=== PATIENT | female | born 1965 | race Caucasian/White ===

== ENCOUNTER → 2021-03-05 03:02 | Outpatient (CLI) | payer BC, SELFPAY ==
[2021-03-05 18:14] LABS: SARS-CoV-2 RNA PCR Negative
== END ==
PROVIDERS: PCP Physician Assistant; Visit Provider Internal Medicine Gastroenterology
DX: Z01.812 Encounter for preprocedural laboratory examination (principal); Z20.822 Contact with and (suspected) exposure to COVID-19
CPT/HCPCS: C9803; U0003; U0005

== ENCOUNTER → 2021-04-05 13:37 | Outpatient (CLI) | payer BC, SELFPAY ==
--- NOTE | ~2021-04-05 | MM_ITS ---
EXAMINATION: MM screening derek BI w charu HISTORY: Screening TECHNIQUE: Craniocaudal and mediolateral oblique 3-D tomosynthesis images were obtained and synthetic 2-D images were generated. CAD analysis was submitted and interpreted. COMPARISON: Comparison to multiple prior studies sequentially, with oldest reviewed study dated 06/28. BREAST PARENCHYMAL COMPOSITION: There are scattered areas of fibroglandular density. FINDINGS: There is no evidence of suspicious mass, calcification, or architectural distortion to sugg est malignancy in either breast. There has been no suspicious interval change. IMPRESSION: 1. No mammographic evidence of malignancy. 2. Recommend routine screening mammography in one year. BI-RADS Category 1: Negative Reviewed, dictated and finalized at location A.
== END ==
PROVIDERS: PCP Physician Assistant; Visit Provider Nurse Practitioner
DX: Z12.31 Encounter for screening mammogram for malignant neoplasm of breast (principal)
CPT/HCPCS: 77063; 77067

== ENCOUNTER → 2022-05-20 11:29 | Outpatient (CLI) | payer BC, SELFPAY ==
--- NOTE | ~2022-05-20 | MM_ITS ---
EXAMINATION: MM screening derek BI w charu HISTORY: Screening mammogram TECHNIQUE: Craniocaudal and mediolateral oblique 3-D tomosynthesis images were obtained and synthetic 2-D images were generated. CAD analysis was submitted and interpreted. COMPARISON: 04/05/2021, 05/2016 bilateral screening mammogram examinations BREAST PARENCHYMAL COMPOSITION: There are scattered areas of fibroglandular density. FINDINGS: There is no evidence of suspicious mass, calcification, or architectural distortion to sugg est malignancy in either breast. There has been no suspicious interval change. IMPRESSION: 1. No mammographic evidence of malignancy. 2. Recommend routine screening mammography in one year. BI-RADS Category 1: Negative Reviewed, dictated and finalized at location A.
== END ==
PROVIDERS: PCP Physician Assistant; Visit Provider Nurse Practitioner
DX: Z12.31 Encounter for screening mammogram for malignant neoplasm of breast (principal)
CPT/HCPCS: 77063; 77067

== ENCOUNTER 2022-08-06 14:41 | Emergency (ER) | payer BC, SELFPAY ==
--- NOTE | ~2022-08-06 | CT_ITS ---
EXAMINATION: CT abdomen pelvis w con DATE: 08/06/2022 18:31 INDICATION: LLQ abd pain TECHNIQUE: Computed tomography (CT) of the abdomen and pelvis was performed with 100 mL Omnipaque-350 intravenous contrast. Automated exposure control and iterative reconstruction technique were employe d. The dose-length product was 376.41 mGy-cm. COMPARISON: None. FINDINGS: Lower thorax: Bibasilar atelectasis Liver: Simple right lobe cyst Biliary/Gallbladder: Gallbladder is normal. No bile duct dilation. Pancreas: No mass or duct dilation. Spleen: Normal. Adrenals:No mass. Kidneys: No mass, stone, or hydronephrosis. GI tract: Mild distal esophageal and gastric wall edema as can be seen with esophagitis/gastritis. No small or large bowel dilation. Mild wall edema in the sigmoid colon. Appendix not visualized Mesentery/Peritoneum: No ascites, mass, or free air. Mild mesenteric fat stranding in the small bowel mesentery in the left abdomen. Retroperitoneum: No mass. Pelvis: Partially distended urinary bladder. Uterine fibroids.. Soft Tissues: Soft tissues and body wall unremarkable. Bones: No acute osseous finding. IMPRESSION: Mild sigmoid wall edema, with mild nonspecific fat stranding in the left abdominal small bowel mesent marion, may reflect a component of enteritis and colitis. Otherwise no acute process detected in the abd omen or pelvis. Reviewed, dictated and finalized at location K. IMPRESSION: Mild sigmoid wall edema, with mild nonspecific fat stranding in the left abdomi nal small bowel mesentery, may reflect a component of enteritis and colitis. Ot herwise no acute process detected in the abdomen or pelvis.
[2022-08-06 15:12] LABS: Basophils Percent Auto 0.5 % (0.2-1.2); Eosinophils Absolute Auto 0.1 K/mm3 (0-0.3); Eosinophils Percent Auto 1.2 % (0-4.4); Hematocrit 40.4 % (37.0-47.0); Hemoglobin 13.4 g/dL (12.0-15.0); Immature Granulocyte Absolute 0.01 K/mm3 (0.00-0.031); Immature Granulocyte Percent A 0.2 % (0-0.5); Lymphocytes Absolute Auto 1.51 K/mm3 (0.9-3.2); Lymphocytes Percent Auto 24.8 % (18.3-44.2); Mean Corpuscular HGB Conc 33.2 g/dl (32-36); Mean Corpuscular Hemoglobin 29.8 pg (26-34); Mean Platelet Volume 9.6 fl (7.4-10.4); Monocytes Absolute Auto 0.5 K/mm3 (0.1-0.6); Monocytes Percent Auto 8.4 % (2.6-8.5); Neutrophils Percent Auto 64.9 % (45.5-73.1); Platelet Count Result 279 k/mm3 (150-375); Red Blood Count 4.49 M/mm3 (4.2-5.4); Red Cell Distribution Width 13.2 % (11.5-14.5); White Blood Count 6.1 K/mm3 (4.5-10.0)
[2022-08-06 15:15] VITALS: BP 152/83; PULSE 107; RESP 18; TEMP 36.2; O2SAT 100
[2022-08-06 15:16] LABS: Appearance Urine Clear (Clear); Bilirubin Urine Negative (Negative); Blood Urine Negative (Negative); Color Urine Yellow (Yellow); Glucose Urine UA Negative (Negative); Ketones Urine Trace mg/dL (Negative); Leukocyte Esterase Ur Negative LEU/UL (Negative); Nitrate Urine Negative (Negative); Protein Urine Negative (Negative); Urobilinogen Urine 0.2 mg/dL (<2.0)
[2022-08-06 15:19] LABS: Mucus Urine Rare /lpf; RBC Urine 0-2 /hpf (0-2); WBC Urine 0-3 /hpf
[2022-08-06 15:20] LABS: Add Urine Microscopic? YES
[2022-08-06 15:20] LABS: Alanine Aminotransferase 27 U/L (6-35); Albumin Level 4.8 g/dL (3.5-5.1); Alkaline Phosphatase 77 U/L (38-126); Anion Gap 10 mmol/L (8-16); Aspartate Amino Transferase 30 U/L (14-36); Bilirubin,Total 0.4 mg/dL (0.2-1.3); Blood Urea Nitrogen 10 mg/dL (7-17); Calcium 9.3 mg/dL (8.4-10.2); Carbon Dioxide 28 mmol/L (22-30); Chloride 96 mmol/L (98-107); Estimated CRCL calculation 72 ml/min; Estimated Glomerular Filt Rate > 60; Glucose 229 mg/dL (65-110); Lipase 107 U/L (23-300); Potassium 4.3 mmol/L (3.4-5.0); Sodium 134 mmol/L (137-145)
--- NOTE | 2022-08-06 17:20 | ED.ABDPAIN ---
HPI - Abdominal Pain General Chief Complaint: Abdominal Pain Stated Complaint: abdominal pressure Time Seen by Provider: 08/06/22 17:16 Source: patient Mode of arrival: ambulatory Limitations: no limitations History of Present Illness HPI narrative: Patient is a 56-year-old female presenting to the emergency department for evaluation of left lower quadrant abdominal pain. Patient reports she has had intermittent cramping pain over the past several weeks. Patient has seen her primary care physician who ordered outpatient testing for her, and referred her to a manager women. Patient is supposed to see Dr. Valenzuela next week. Patient presents with acute on chronic colicky left upper and lower quadrant abdominal pain and intermittent fullness. Patient states that she has adhered mostly to a liquid diet with some improvement in her symptoms. Patient reports chronic constipation but reports improvement with liquid diet. She denies diarrhea. She denies dark or tarry stool. No mucus present in the stool. She denies unintentional weight loss. Today, patient reports that she had some generalized fatigue and nonfocal weakness as well as left-sided pain which prompted her visit to the ER. Related Data Allergies Allergy/AdvReac Type Severity Reaction Status Date / Time Penicillins Allergy Hives Verified 08/06/22 15:15 Review of Systems Review of Systems: CONSTITUTIONAL: Denies fever, chills, or sweats. EYES: Denies visual changes, redness, or discharge. ENT: Denies rhinorrhea, congestion, sore throat, or otalgia. CARDIOVASCULAR: Denies chest pain, palpitations, or edema. RESPIRATORY: Denies cough or dyspnea. GASTROINTESTINAL: Reports left-sided abdominal pain, denies nausea, vomiting, reports constipation GENITOURINARY: Denies dysuria or hematuria. SKIN: Denies rash or itching. MUSCULOSKELETAL: Denies back pain, joint pain, or myalgia. NEUROLOGIC: Denies headache, numbness, reports generalized weakness PMFSH Social History Social History (Updated 08/06/22 @ 17:38 by Yoon Kong MD) Smoking status: Never smoker Alcohol intake: never Substance use: never Living arrangements: with family Gender identity (if verbalized by the patient): Female Spiritual care concerns: No Exam Narrative: GENERAL: Awake, alert, conversant HEAD: Normocephalic, atraumatic. EYES: PERRLA and EOMI. ENT: Nares clear, no rhinorrhea or epistaxis. Mucous membranes moist. NECK: Supple. CHEST: No respiratory distress, breathing even and non labored HEART: Tachycardic rate, sinus rhythm ABDOMEN:Non distended, non tender in all 4 quadrants, no rebound, rigidity or guarding EXTREMITIES: Normal range of motion. No edema. SKIN: Warm, dry, no rash. NEURO:No focal deficits. Alert and oriented x3 Course Vital Signs Vital signs: Vital Signs Temperature 36.2 C L 08/06/22 15:15 Pulse Rate 107 H 08/06/22 15:15 Respiratory Rate 18 08/06/22 15:15 Blood Pressure 152/83 H 08/06/22 15:15 Pulse Oximetry 100 08/06/22 15:15 Temperature 36.2 C L 08/06/22 15:15 Pulse Rate 97 08/06/22 18:25 Respiratory Rate 18 08/06/22 18:25 Blood Pressure 140/78 08/06/22 18:25 Pulse Oximetry 100 08/06/22 18:25 Oxygen Delivery Room Air 08/06/22 18:25 MDM - Abdominal Pain MDM Narrative Medical decision making narrative: Patient presenting for evaluation of left-sided abdominal pain which has been chronic in nature over the past 5 weeks. Time of assessment, patient is mildly tachycardic, no significant pain on exam. IV access obtained and labs are drawn. Patient was given IV fluids. Patient declined pain medication. Laboratory results are reassuring. CT scan was concerning for colitis with left-sided inflammatory changes. Given patient has been quite symptomatic, findings of significant edema and stranding on exam, we discussed trialing oral antibiotic therapy to see if that could potentially improve her symptoms. Although she
--- NOTE | 2022-08-06 17:39 | ECG_ITS ---
Measurements Intervals [place] Rate: 89 P: 61 IA: 120 QRS: -2 QRSD: 84 T: 43 QT: 360 QTc: 439 Interpretive Statements SINUS RHYTHM BASELINE ARTIFACT- I, III, AVR, AVL, AVF NORMAL ECG NO PREVIOUS ECG AVAILABLE FOR COMPARISON Electronically Signed On 08-06-2022 20:24:00 CDT by Abdiel Arana D.O.
[2022-08-06 18:03] LABS: Troponin I < 0.012 ng/mL (0.000-0.034)
[2022-08-06 18:25] VITALS: BP 140/78; PULSE 97; RESP 18; O2SAT 100
[2022-08-06] MEDS: SODIUM CHLORIDE 0.9% IV 1,000 ML 999 ML IV CONT (18:37)
[2022-08-06 19:42] VITALS: BP 124/84; PULSE 88; RESP 18; O2SAT 96
== END 2022-08-06 19:45 | disposition home or self-care (01) ==
PROVIDERS: Emergency Provider Emergency Medicine; PCP Physician Assistant
DX: K52.9 Noninfective gastroenteritis and colitis, unspecified (principal)
CPT/HCPCS: 36415; 74177; 80053; 81001; 81025; 83690; 84484; 85025; 93005; 96360; 99284; J7030; Q9967

== ENCOUNTER 2022-09-04 11:05 | Emergency (ER) | payer BC, SELFPAY ==
[2022-09-04] VITALS (13 sets, daily range): BP systolic 124–150; BP diastolic 70–92; PULSE 78–105; RESP 8–18; TEMP 36.8; O2SAT 98–100
--- NOTE | ~2022-09-04 | CT_ITS ---
EXAMINATION: CT abdomen pelvis w con DATE: 09/04/2022 15:54 INDICATION: Left lower quadrant abdominal pain, distention TECHNIQUE: Computed tomography (CT) of the abdomen and pelvis was performed with 100 CC Omnipaque 350 intravenous contrast. Automated exposure control and iterative reconstruction technique were employe d. Exam dose: 331.89 mGy-cm total exam DLP. COMPARISON: 08/06/2022 CT abdomen pelvis FINDINGS: The lung bases are clear. Normal heart size. No pericardial or pleural effusion. Small hepatic cyst. The gallbladder is present. No bile duct or pancreatic duct dilatation. No pancre atic mass lesion or calcification. Normal splenic size. Normal morphology of the adrenal glands. No renal mass lesion or urinary tract calculus or hydroureteronephrosis. Calcified uterine fibroids. Retroverted uterus. Moderate diffuse thickening of the urinary bladder wall; cystitis is not excluded. Normal caliber of the abdominal aorta. No intraperitoneal or retroperitoneal or pelvic mass lesion or adenopathy or ascites. No bowel obstruction, bowel wall thickening, pneumatosis or intraperitoneal free air is detected. Min imal colonic diverticulosis; no CT evidence of diverticulitis is noted. Prominent sclerotic lesion of left iliac crest, likely a bone island. Small fat-containing umbilical hernia. IMPRESSION: Retroverted uterus with calcified fibroids Small hepatic cyst Reviewed, dictated and finalized at Location A. Reviewed, dictated and finalized at location B. [employer]
--- NOTE | ~2022-09-04 | XR_ITS ---
EXAMINATION: XR chest 2V DATE: 09/04/2022 11:25 INDICATION: Shortness of breath. TECHNIQUE: Frontal and lateral views of the chest were obtained. COMPARISON: CT abdomen and pelvis 08/06/2022 FINDINGS: There is no pneumonia, pleural effusion, pneumothorax. The heart size is normal. There is m ild chronic anterior wedging of a midthoracic vertebral body. IMPRESSION: 1. No acute cardiopulmonary disease. Reviewed, dictated and finalized at location A. [employer]
--- NOTE | ~2022-09-04 | CT_ITS ---
EXAMINATION: CT brain wo con DATE: 09/04/2022 15:52 INDICATION: Weakness. TECHNIQUE: Computed tomography (CT) of the head was performed without intravenous contrast. The dose- length product was 605.33 mGy-cm. Automated exposure control and iterative reconstruction technique w ere employed. COMPARISON: No prior studies for comparison. FINDINGS: No acute intracranial hemorrhage, infarction, mass or mass effect. No ventriculomegaly or m idline shift. There are scattered mild periventricular and subcortical white matter changes, most lik matt related to small vessel ischemic disease (microangiopathy). There is mild mucosal thickening of t he maxillary sinuses. Mastoids are pneumatized. No depressed skull fractures. Midline sagittal images are unremarkable. IMPRESSION: 1. No acute intracranial abnormality. Reviewed, dictated and finalized at location A. TURNER
--- NOTE | 2022-09-04 11:10 | ECG_ITS ---
Measurements Intervals [place] Rate: 91 P: 35 TN: 108 QRS: 1 QRSD: 77 T: 46 QT: 340 QTc: 420 Interpretive Statements SINUS RHYTHM WITH SHORT TN INTERVAL NONSPECIFIC ST AND T-WAVE ABNORMALITIES ABNORMAL ECG COMPARED TO ECG 08/06/2022 18:10:20 NO SIGNIFICANT CHANGES Electronically Signed On 09-04-2022 11:29:42 [employer] [employer] by Jair Uribe M.D.
[2022-09-04 11:36] LABS: Basophils Percent Auto 0.6 % (0.2-1.2); Eosinophils Absolute Auto 0.1 K/mm3 (0-0.3); Eosinophils Percent Auto 2.1 % (0-4.4); Hematocrit 43.5 % (37.0-47.0); Hemoglobin 14.4 g/dL (12.0-15.0); Immature Granulocyte Absolute 0.01 K/mm3 (0.00-0.031); Immature Granulocyte Percent A 0.2 % (0-0.5); Lymphocytes Absolute Auto 1.54 K/mm3 (0.9-3.2); Lymphocytes Percent Auto 24.4 % (18.3-44.2); Mean Corpuscular HGB Conc 33.1 g/dl (32-36); Mean Corpuscular Volume 90.6 fl (80-100); Mean Platelet Volume 10.6 fl (7.4-10.4); Monocytes Absolute Auto 0.8 K/mm3 (0.1-0.6); Monocytes Percent Auto 11.9 % (2.6-8.5); Neutrophils Absolute Auto 3.9 K/mm3 (1.3-6.7); Neutrophils Percent Auto 60.8 % (45.5-73.1); Platelet Count Result 300 k/mm3 (150-375); Red Cell Distribution Width 13.3 % (11.5-14.5); White Blood Count 6.3 K/mm3 (4.5-10.0)
[2022-09-04 11:52] LABS: Alanine Aminotransferase 24 U/L (6-35); Alkaline Phosphatase 81 U/L (38-126); Anion Gap 12 mmol/L (8-16); Aspartate Amino Transferase 25 U/L (14-36); Bilirubin,Total 0.4 mg/dL (0.2-1.3); Blood Urea Nitrogen 13 mg/dL (7-17); Calcium 9.8 mg/dL (8.4-10.2); Carbon Dioxide 26 mmol/L (22-30); Chloride 102 mmol/L (98-107); Estimated Glomerular Filt Rate > 60; Glucose 117 mg/dL (65-110); Potassium 4.4 mmol/L (3.4-5.0); Sodium 140 mmol/L (137-145)
--- NOTE | 2022-09-04 13:23 | ED.SOB ---
HPI - SOB/Dyspnea General Chief Complaint: Shortness of Breath/Dyspnea Stated Complaint: weakness, SOB, chills Time Seen by Provider: 09/04/22 13:22 Source: patient Mode of arrival: ambulatory Limitations: no limitations History of Present Illness HPI Narrative: Patient is a 56-year-old female with a history of acid reflux, recently diagnosed with colitis, presenting to the emergency department for evaluation of generalized weakness, shortness of breath, left-sided chest pain. Patient has multiple symptoms, states she has felt unwell since taking antibiotics prescribed to her after I evaluated her for left lower quadrant abdominal pain at the beginning of last month. Patient states her abdominal pain seems to come and go as well as watery diarrhea, sometimes with mucus present in it. Patient reports nighttime awakening with tremors and feeling febrile although she states she has never had a documented fever. Patient states that she feels a coating over her tongue. Patient was prescribed fluconazole after course of ciprofloxacin and Flagyl without improvement in those symptoms either. Patient also reports intermittently dry mouth. Patient is worried that she will be too weak to have a colonoscopy that is scheduled for 09/[address] Valenzuela. She states that she did trial some omeprazole per the provider at the gastroenterology office and this she feels is what caused her diarrhea. Patient has since stopped that medication. Pt also reports dyspnea and left sided breast pain which sometimes occurs at rest. Pt denies this pain currently. Is also reporting chronic ear fullness. She denies ear pain. No discharge from the ears. No congestion. Related Data Allergies Allergy/AdvReac Type Severity Reaction Status Date / Time ciprofloxacin Allergy Rash Verified 09/04/22 16:25 metronidazole [From Flagyl] Allergy Rash Verified 09/04/22 16:25 omeprazole AdvReac Diarrhea Verified 09/04/22 16:25 Review of Systems Review of Systems: CONSTITUTIONAL: Reports subjective fever and chills ENT: Denies rhinorrhea, congestion, sore throat, or otalgia. Reports ear fullness. CARDIOVASCULAR: Reports intermittent chest pain, none currently RESPIRATORY: Denies cough, reports dyspnea at times GASTROINTESTINAL: Reports intermittent nausea without vomiting, reports diarrhea GENITOURINARY: Denies dysuria or hematuria. SKIN: Denies rash or itching. MUSCULOSKELETAL: Denies back pain, joint pain, or myalgia. NEUROLOGIC: Denies headache, numbness, reports feeling generally weak without numbness or focal weakness PMFSH Past Medical History Medical History Anxiety Arthritis GERD (gastroesophageal reflux disease) Surgical History Surgical History Hx of removal of ovary Family History Family History Father Diabetes mellitus Mother Asthma Sibling Non Hodgkin's lymphoma Social History Social History Smoking status: Never smoker Alcohol intake: never Substance use: never Substance use type: does not use Gender identity (if verbalized by the patient): Female Spiritual care concerns: No Exam Narrative: GENERAL: Awake, alert, conversant HEAD: Normocephalic, atraumatic. EYES: PERRLA and EOMI. ENT: Nares clear, no rhinorrhea or epistaxis. Mucous membranes moist. NECK: Supple. CHEST: No respiratory distress, breathing even and non labored HEART: Regular rate, sinus rhythm ABDOMEN:Non distended, non tender EXTREMITIES: Normal range of motion. No edema. SKIN: Warm, dry, no rash. NEURO:No focal deficits. Alert and oriented x3 Course Vital Signs Vital signs: Vital Signs Temperature 36.8 C 09/04/22 11:07 Pulse Rate 100 09/04/22 11:07 Respiratory Rate 16 09/04/22 11:07 Blood Pressure 150/
[2022-09-04] MEDS: SODIUM CHLORIDE 0.9% IV 1,000 ML 999 ML IV CONT (14:12)
[2022-09-04 14:32] LABS: Appearance Urine Clear (Clear); Bilirubin Urine Negative (Negative); Blood Urine Negative (Negative); Color Urine Yellow (Yellow); Glucose Urine UA Negative (Negative); Ketones Urine Negative (Negative); Leukocyte Esterase Ur Negative LEU/UL (Negative); Nitrate Urine Negative (Negative); Protein Urine Negative (Negative); Specific Grav Ur 1.015 (1.001-1.035); Urobilinogen Urine 0.2 mg/dL (<2.0)
[2022-09-04 14:40] LABS: Add Urine Microscopic? NO
[2022-09-04 14:54] LABS: D Dimer 0.46 ug/mL (<0.48); Troponin I < 0.012 ng/mL (0.000-0.034)
[2022-09-04 15:19] LABS: Influenza A QL RT-PCR Negative (Negative); Influenza B QL RT-PCR Negative (Negative); RSV RNA, RT-PCR Negative (Negative); SARS-CoV-2 RNA PCR Negative
== END 2022-09-04 17:40 | disposition home or self-care (01) ==
PROVIDERS: Emergency Medicine; Emergency Provider Emergency Medicine; PCP Physician Assistant
DX: R53.1 Weakness (principal); R10.9 Unspecified abdominal pain; Z20.822 Contact with and (suspected) exposure to COVID-19; K21.9 Gastro-esophageal reflux disease without esophagitis; M19.90 Unspecified osteoarthritis, unspecified site; Z90.721 Acquired absence of ovaries, unilateral; K76.89 Other specified diseases of liver; N85.4 Malposition of uterus; D25.9 Leiomyoma of uterus, unspecified; R94.31 Abnormal electrocardiogram [ECG] [EKG]
CPT/HCPCS: 36415; 70450; 71046; 74177; 80053; 81003; 84443; 84484; 85025; 85380; 87637; 93005; 99284; J7030; Q9967

== ENCOUNTER 2022-09-25 01:23 | Day surgery (SDC) | payer BC, SELFPAY ==
[2022-09-16 14:03] VITALS: BMI 26.9
--- NOTE | 2022-09-24 12:52 | PM.HPGS ---
History of Present Illness History of Present Illness Consent: Risks, benefits, and alternatives have been discussed and questions answered. Patient agrees to proceed with procedure. Chief complaint: Gerd; colitis Narrative: Kathy Murguia is a 56 year old female Referred for investigation of chronic acid reflux symptoms. She has also had a change in bowel habits. For 2 months she has had excessive gas, fecal urgency, narrow caliber stools and tenesmus. There is a also bloating and discomfort with that. she has had episodes of nocturnal reflux that wake her from sleep a recent CT scan of the abdomen showed some edema in the sigmoid colon and mesenteric fat stranding suggestive of diverticulitis. She was treated with Cipro and Flagyl. She had a negative Cologuard test a year ago. An attempted colonoscopy in 2020 could not be completed, due to not having taken a prep appropriately. She describes her pains has been in various locations. Was initially the left lower quadrant. Now she has pain in the lower thorax on both the left side and the right side. Also gets a great deal of pressure in the lower substernal area and has excessive belching. She does use a straw for beverages while eating. She has also lost about 10 lb in the last 2 months. Review of Systems Review of Systems: All systems reviewed & are unremarkable except as noted in HPI and below PMFSH Past Medical History Medical History Anxiety Arthritis GERD (gastroesophageal reflux disease) Surgical History Surgical History Hx of removal of ovary Family History Family History Father Diabetes mellitus Mother Asthma Sibling Non Hodgkin's lymphoma Social History Social History Smoking status: Never smoker Alcohol intake: never Substance use: never Substance use type: does not use Living arrangements: with family Gender identity (if verbalized by the patient): Female Spiritual care concerns: No Meds Home Medications and Allergies Home Medications Medication Instructions Recorded Confirmed Type escitalopram oxalate 10 mg tablet 10 mg PO DAILY 09/16/22 09/16/22 History omeprazole 20 mg capsule,delayed 20 mg PO DAILY #30 caps 09/17/22 Rx release Allergies Allergy/AdvReac Type Severity Reaction Status Date / Time ciprofloxacin Allergy Rash Verified 09/25/22 07:21 metronidazole [From Flagyl] Allergy Rash Verified 09/25/22 07:21 omeprazole AdvReac Diarrhea Verified 09/25/22 07:21 Exam Const: General: alert Orientation/consciousness: patient oriented x3 Resp: Auscultation: clear to auscultation bilaterally Cardio: Rhythm: regular rhythm GI: GI Palp: Yes Soft to palpation and No Tenderness to palpation present (GI) Neuro: General: patient oriented x3 Assessment and Plan Assessment and plan (1) GERD (gastroesophageal reflux disease): Code(s): K21.9 - Gastro-esophageal reflux disease without esophagitis Status: Acute Assessment and Plan: EGD with possible biopsy or dilatation or cautery. (2) Colon cancer screening: Code(s): Z12.11 - Encounter for screening for malignant neoplasm of colon Status: Acute Assessment and Plan: Colonoscopy with possible biopsy or polypectomy or cautery or injection of substances.
[2022-09-25 07:23] VITALS: BP 140/95; PULSE 109; RESP 18; TEMP 36.6; O2SAT 100
[2022-09-25] MEDS: LACTATED RINGERS 1,000 ML 150 ML IV CONT (07:34)
--- NOTE | 2022-09-25 07:47 | WPDANESEPPF ---
Anes - Initial Pre Proc Eval Procedure: Operation Date: 09/25/22 08:30 Proposed Procedures p Esophagogastroduodenoscopy & Colonoscopy - Johny Valenzuela MD Date/Time: 09/25/22 07:47 Surgeon: Johny Valenzuela MD Pre Op Diagnosis: Gerd; colitis Patient Data Age: 56 Gender: F Height: 1.6 m Weight: 65.7 kg Last Vital Signs Temp 36.6 C 09/25/22 07:23 Pulse 109 H 09/25/22 07:23 Resp 18 09/25/22 07:23 BP 140/95 H 09/25/22 07:23 Pulse Ox 100 09/25/22 07:23 O2 Del Method Room Air 09/25/22 07:23 Allergies Allergy/AdvReac Type Severity Reaction Status Date / Time ciprofloxacin Allergy Rash Verified 09/25/22 07:21 metronidazole [From Flagyl] Allergy Rash Verified 09/25/22 07:21 omeprazole AdvReac Diarrhea Verified 09/25/22 07:21 Home Medications Medication Instructions Recorded Confirmed Type escitalopram oxalate 10 mg tablet 10 mg PO DAILY 09/16/22 09/16/22 History omeprazole 20 mg capsule,delayed 20 mg PO DAILY #30 caps 09/17/22 Rx release Patient hx anesthesia problems: none Family hx anesthesia problems: none Results Review: All pre-operative results and documents have been reviewed as part of the pre-operative evaluation. [facility] Past Medical History Medical History Anxiety Arthritis GERD (gastroesophageal reflux disease) Surgical History Surgical History Hx of removal of ovary Family History Family History Father Diabetes mellitus Mother Asthma Sibling Non Hodgkin's lymphoma Social History Social History Smoking status: Never smoker Alcohol intake: never Substance use: never Substance use type: does not use Living arrangements: with family Gender identity (if verbalized by the patient): Female Spiritual care concerns: No Anes - Eval Final PreProcedure Day of Procedure 09/25/22 07:47 Patient weight: normal Heart: regular rate and rhythm Lungs: clear to auscultation Airway: Mallampati scale class II Neurological: alert and oriented Last oral intake: >/= 8 hours ASA classification: II Emergent: no Anesthetic plan: proceed Anesthesia type and monitoring: general GIVS and standard monitoring Results Review: All pre-operative results and documents have been reviewed as part of the pre-operative evaluation. Informed Consent: The patient's anesthetic plan and its attendant risks and benefits were discussed with the patient/family/POA. Questions were solicited and answers provided to the satisfaction of the patient/family/POA.
--- NOTE | 2022-09-25 08:59 | SUR.OPER ---
EGD ended at 856, Colonoscopy began at 901.
[2022-09-25 09:17] VITALS: BP 112/73; PULSE 94; RESP 20; O2SAT 100
[2022-09-25 09:27] VITALS: BP 127/86; PULSE 85; RESP 24; O2SAT 100
[2022-09-25 09:37] VITALS: BP 125/82; PULSE 83; RESP 18; O2SAT 100
== END 2022-09-25 10:08 | disposition home or self-care (01) ==
PROVIDERS: PCP Physician Assistant; Visit Provider Internal Medicine Gastroenterology
PROC: 0DJ08ZZ Inspection of Upper Intestinal Tract, Via Natural or Artificial Opening Endoscopic (ICD-10-PCS; CPT 43235; principal; 2022-09-25 08:30)
DX: Z12.11 Encounter for screening for malignant neoplasm of colon (principal); K63.5 Polyp of colon; K57.30 Diverticulosis of large intestine without perforation or abscess without bleeding; K21.9 Gastro-esophageal reflux disease without esophagitis; K29.70 Gastritis, unspecified, without bleeding; F41.9 Anxiety disorder, unspecified; R19.4 Change in bowel habit
CPT/HCPCS: 45378; 43239; 87081; 88305; J2001; J2704; J7120

== ENCOUNTER → 2023-06-11 10:16 | Outpatient (CLI) | payer BC, SELFPAY ==
--- NOTE | ~2023-06-11 | DEXA_ITS ---
Bone Density Report Name: CECI OLIVARES Age: 57 Sex: Female Ethnicity: White Date of : 1965 Indication: osteopenia; postmenopausal Referring Provider: JEREMY, TIMMY Study: Bone densitometry was performed. Exam Date: June 11, 2023 Accession number: [id number] Bone Density: Region BMD T-score Z-score Classification AP Spine (L1-L4) 0.786 -2.4 -1.1 Osteopenia Femoral Neck (Left) 0.660 -1.7 -0.5 Osteopenia Total Hip (Left) 0.750 -1.6 -0.7 Osteopenia Femoral Neck (Right) 0.678 -1.5 -0.3 Osteopenia Total Hip (Right) 0.790 -1.2 -0.4 Osteopenia Total Hip Mean 0.770 -1.4 -0.6 Osteopenia World Health Organization criteria for BMD impression classify patients as: Normal (T-score at or above -1.0), Osteopenia (T-score between -1.0 and -2.5), or Osteoporosis (T-score at or below -2.5). 10-year Fracture Risk(1): Major Osteoporotic Fracture 7.9% Hip Fracture 0.7% Reported Risk Factors: [place] (), Neck BMD=0.660, BMI=27.5 (1) FRAX(R) Version 3.08. Fracture probability calculated for an untreated patient. Fracture probability may be lower if the patient has received treatment. Previous Exams: Region Exam Age BMD T-score BMD Change BMD Change Date g/cm2 vs Baseline vs Previous AP Spine(L1-L4) 06/11/2023 57 0.786 -2.4 -0.078* -0.078* 05/08/2016 50 0.865 -1.7 Total Hip(Left) 06/11/2023 57 0.750 -1.6 -0.042* -0.042* 05/08/2016 50 0.793 -1.2 Total Hip(Right) 06/11/2023 57 0.790 -1.2 -0.038* -0.038* 05/08/2016 50 0.828 -0.9 *Denotes significance at 95% confidence level, LSC for AP Spine = 0.022 g/cm2, LSC for Total Hip = 0.027 g/cm2 Clinical Information Provided by Patient: Patient maximum height was 63.5 Menopause Age: 47 No regular weight bearing exercise Drinks caffeinated beverages Onset of menses at age 11 Number of children 0 Impression: The patient has low bone mass, based on the Total Spine T-score. The patient has an estimated ten-year risk of hip fracture of 0.7% and an estimated ten-year risk of major fracture of 7.9%, based on the WHO FRAX algorithm. The BMD for the AP Spine(L1-L4) decreased, changing by -0.078 since the last DXA exam. The BMD for the Total Hip(Left) decreased, changing by -0.042 since the last DXA exam. The BMD for the Total Hip(Right) decreased, changing by -0.038 since the last DXA exam. Discussion: BONE DENSITY IS LOW AT ON
--- NOTE | ~2023-06-11 | MM_ITS ---
EXAMINATION: MM screening derek BI w charu HISTORY: Screening mammogram TECHNIQUE: Craniocaudal and mediolateral oblique 3-D tomosynthesis images were obtained and synthetic 2-D images were generated. CAD analysis was submitted and interpreted. COMPARISON: 05/20/2022, 04/05/2021 bilateral screening mammogram examinations BREAST PARENCHYMAL COMPOSITION: There are scattered areas of fibroglandular density. FINDINGS: There is no evidence of suspicious mass, calcification, or architectural distortion to sugg est malignancy in either breast. There has been no suspicious interval change. IMPRESSION: 1. No mammographic evidence of malignancy. 2. Recommend routine screening mammography in one year. BI-RADS Category 1: Negative Reviewed, dictated and finalized at location A.
== END ==
PROVIDERS: PCP Physician Assistant; Visit Provider Nurse Practitioner
DX: Z12.31 Encounter for screening mammogram for malignant neoplasm of breast (principal); M85.88 Other specified disorders of bone density and structure, other site; M85.851 Other specified disorders of bone density and structure, right thigh; M85.852 Other specified disorders of bone density and structure, left thigh
CPT/HCPCS: 77063; 77067; 77080

== ENCOUNTER 2023-12-21 12:39 | Emergency (ER) | payer BC, SELFPAY ==
[2023-12-21 12:44] VITALS: BP 122/60; PULSE 83; RESP 16; TEMP 36.4; O2SAT 100
--- NOTE | 2023-12-21 12:55 | ED.GENADULT ---
HPI - General Adult General Chief complaint: Upper Respiratory Infection Stated complaint: Sinus Infection Symptoms Source: patient, RN notes reviewed and old records reviewed Mode of arrival: ambulatory Limitations: no limitations History of Present Illness HPI narrative: 58-year-old female presents to [facility] with complaints sinus congestion this started approximately a week ago patient now has left-sided facial swelling with pain 3 to left frontal maxillary sinus and pain 3 left eye. Patient taking [id number] medications with little relief. Related Data Home Medications Medication Instructions Recorded Confirmed escitalopram oxalate 10 mg tablet 10 mg PO DAILY 09/16/22 12/21/23 azelastine 137 mcg (0.1 %) nasal 2 spray intranasal BID 12/21/23 12/21/23 spray aerosol Allergies Allergy/AdvReac Type Severity Reaction Status Date / Time ciprofloxacin Allergy Rash Verified 12/21/23 12:44 metronidazole [From Flagyl] Allergy Rash Verified 12/21/23 12:44 omeprazole AdvReac Diarrhea Verified 12/21/23 12:44 Review of Systems Constitutional: Constitutional: Reports no additional constitutional complaints, Denies body ache(s), Denies chills, Denies fatigue, Denies fever(s) and Reports headache(s) Eyes: Eyes: Reports no additional eye complaints and Denies blurry vision ENT: Reports system reviewed and no additional complaints, except as documented, Denies vertigo, Denies dizziness, Denies ear discharge, Denies otalgia, Reports facial pain, Reports headache(s), Reports nasal congestion, Denies nasal discharge, Reports sinus pain, Reports sinus pressure and Denies sore throat Comments: Facial swelling left side Cardiovascular: Cardiovascular: Reports no additional cardiovascular complaints, Denies chest pain, Denies chest pain at rest, Denies rapid heart rate and Denies dyspnea Respiratory: Respiratory: Reports no additional respiratory complaints, Denies chest congestion, Denies cough, Denies pain on inspiration, Denies pain with cough and Denies dyspnea Gastrointestinal: Gastrointestinal: Denies abdominal pain, Denies diarrhea, Denies nausea and Denies vomiting Integumentary/Breasts: Skin/Breast: Denies rash Neurologic: Reports system reviewed and no additional complaints, except as documented, Denies vertigo, Denies dizziness and Denies headache(s) Endocrine: Endocrine: Denies fatigue PMFSH Past Medical History Medical History Anxiety Arthritis GERD (gastroesophageal reflux disease) Surgical History Surgical History Hx of removal of ovary Family History Family History Father Diabetes mellitus Mother Asthma Sibling Non Hodgkin's lymphoma Social History Social History Smoking status: Never smoker Alcohol intake: never Substance use: never Substance use type: does not use Living arrangements: with family Gender identity (if verbalized by the patient): Female Spiritual care concerns: No Comments At the time of my signature, I reviewed and agree with the nursing past medical, surgical, social, and family history. There is no relevant family history pertinent to the patient complaint. Exam Const: General: cooperative, healthy appearing, no acute distress and well nourished Nutritional Appearance: well nourished Orientation/consciousness: patient oriented x3 Limitations: no limitations HENMT: Head: normal to inspection and normocephalic Ears: external ears normal, TM's normal bilaterally, EAC's normal and mastoids normal Face/Nose/Sinus: Abnormal mucous membranes and turbinates present boggy and pale, Nasal discharge present purulent bilateral and normal facial exam Face and sinus: normal facial exam, face asymmetric, sinus tenderness ( left side) fr
== END 2023-12-21 13:09 | disposition home or self-care (01) ==
PROVIDERS: Emergency Provider Registered Nurse; PCP Physician Assistant
DX: J01.90 Acute sinusitis, unspecified (principal); H10.33 Unspecified acute conjunctivitis, bilateral; M19.90 Unspecified osteoarthritis, unspecified site; K21.9 Gastro-esophageal reflux disease without esophagitis; F41.9 Anxiety disorder, unspecified
CPT/HCPCS: 99213; G0463

== ENCOUNTER 2023-12-23 16:16 | Emergency (ER) | payer BC, SELFPAY ==
[2023-12-23 16:18] VITALS: BP 169/114; PULSE 96; RESP 16; TEMP 36; O2SAT 100
--- NOTE | 2023-12-23 17:02 | ED.URI ---
HPI - URI/Sore Throat General Chief Complaint: Skin/Abscess/Foreign Body <Maxx Archer APRN - Last Filed: 12/23/23 17:41> Stated Complaint: L eye swelling, worsening URI <Maxx Archer APRN - Last Filed: 12/23/23 17:41> Time Seen by Provider: 12/23/23 17:00 <Maxx Archer APRN - Last Filed: 12/23/23 17:41> Focused HPI: Kathy is a 58-year-old female patient presenting to the ER today with complaints of rash to the left side her face with left eye swelling, and her URI symptoms are worsening. States that she was seen on December 22 and diagnosed with a bacterial sinus infection and given doxycycline and states that this is right upsetting her stomach and she was unable to take the doxycycline today. Reports having a migraine headache on the left side of her head. Reports nausea as well. General: Well-appearing, well-nourished, and in acute pain Head: Normocephalic, atraumatic. Erythemic base painful rash with vesicular lesions to the left scalp, face, and around left eye Eyes: Pupils equally round and reactive to light bilaterally, EOM intact, sclera and conjunctive clear, no discharge, lids normal Ears: TMs intact and clear, ear canals clear, no drainage, grossly hearing normal. Nose: Nares patent, no discharge, no inflammation, no sinus tenderness. Mouth: Oropharynx without lesions or masses, good dentition, MMM. Neck: Supple, trachea midline, no enlargement of anterior or posterior cervical nodes, no thyroid masses or goiter palpable. Cardio: Regular rate and rhythm, s1 and s2 normal, no murmur appreciated. Resp: Clear to auscultation bilaterally anteriorly and posteriorly, no rhonchi, rales, wheezing or rubs Patient screened in triage and initial orders placed. Additional care and disposition to be based upon diagnostic testing and treatment. <Maxx Archer APRN - Last Filed: 12/23/23 17:41> Source: patient <Maxx Archer APRN - Last Filed: 12/23/23 17:41> Mode of arrival: ambulatory <Maxx Archer APRN - Last Filed: 12/23/23 17:41> Limitations: no limitations <Maxx Archer APRN - Last Filed: 12/23/23 17:41> Related Data Home Medications: Home Medications Medication Instructions Recorded Confirmed escitalopram oxalate 10 mg tablet 10 mg PO DAILY 09/16/22 12/21/23 azelastine 137 mcg (0.1 %) nasal 2 spray intranasal BID 12/21/23 12/21/23 spray aerosol <Maxx Archer APRN - Last Filed: 12/23/23 17:41> Allergies/Adverse Reactions: Allergies Allergy/AdvReac Type Severity Reaction Status Date / Time ciprofloxacin Allergy Rash Verified 12/21/23 12:44 metronidazole [From Flagyl] Allergy Rash Verified 12/21/23 12:44 omeprazole AdvReac Diarrhea Verified 12/21/23 12:44 <Maxx Archer APRN - Last Filed: 12/23/23 17:41> Review of Systems Review of Systems: Pertinent positives per HPI. Patient denies any fever, chills, visual changes, dizziness, sore throat, shortness of breath, chest pain, palpitations, vomiting, diarrhea, constipation, abdominal pain, or any urinary issues. <Maxx Archer APRN - Last Filed: 12/23/23 17:41> [facility] Past Medical History Medical History: Medical History Anxiety Arthritis GERD (gastroesophageal reflux disease) <Maxx Archer APRN - Last Filed: 12/23/23 17:41> Surgical History Surgical History: Surgical History Hx of removal of ovary <Maxx Archer APRN - Last Filed: 12/23/23 17:41> Family History Family History: Family History Father Diabetes mellitus Mother Asthma Sibling Non Hodgkin's lymphoma <Maxx Archer APRN - Last Filed: 12/23/23 17:41> Social History Social History: Social History (Reviewed 12/23/23 @ 17:31 by Maxx Schultz
[2023-12-23] MEDS: HYDROcodone/acetaminophen (*CRX) 5-325 MG TABLET 1 TAB PO (17:11)
[2023-12-23] MEDS: ONDANSETRON HCL ODT 4 MG TABLET PO (17:11)
== END 2023-12-23 17:54 | disposition home or self-care (01) ==
LOC: ANHED 17:40
PROVIDERS: Emergency Provider Nurse Practitioner Family; PCP Physician Assistant
DX: J01.80 Other acute sinusitis (principal); B96.89 Other specified bacterial agents as the cause of diseases classified elsewhere; B02.9 Zoster without complications; F41.9 Anxiety disorder, unspecified
CPT/HCPCS: 99283; A9270

== ENCOUNTER 2024-01-05 20:10 | Emergency (ER) | payer BC, SELFPAY ==
[2024-01-05 20:12] VITALS: BP 153/91; PULSE 94; RESP 20; TEMP 36.8; O2SAT 99
--- NOTE | 2024-01-05 21:53 | ED.EYEPROB ---
HPI - Eye Problem General Chief complaint: Eye Problems Stated complaint: shingles, eye complaint Time Seen by Provider: 01/05/24 20:59 History of Present Illness HPI Narrative: Patient is a 58-year-old female who presents to the emergency department this evening due to sudden onset sharp left eye pain lasting a few seconds. Patient admits that approximately 2 weeks ago she was diagnosed with left facial herpes zoster with ocular involvement. Patient admits that at that time she did have a positive Ji sign. Patient was placed on anti viral so with acyclovir which she has been taking regularly for the past 2 weeks. She was provided with follow-up with Ophthalmology and patient admits that she has seen an nautical instrument mechanic who specializes in corneas 4 times in the past 2 weeks. She admits that her rash has significantly improved and states that initially when she was diagnosed she did lose vision in her left eye only being able to see light at that time, however, patient's vision did return and now she states that her vision in her left eye is back to baseline. Patient has been using some steroid eyedrops prescribed by her nautical instrument mechanic along with timolol eye drops to decrease her intra-ocular pressure in her left. Patient states that she was doing well and making appropriate progression and improvement according to her nautical instrument mechanic, except for the 1 episode of sharp pain that she felt prior to arrival. Patient states that the pain was so severe causing her to call out for her . During this episode, patient states that she did not lose any vision her left eye. Patient is denying any additional symptoms or concerns at this time. There are no other modifying, alleviating, or precipitating factors at this time. Related Data Home Medications Medication Instructions Recorded Confirmed escitalopram oxalate 10 mg tablet 10 mg PO DAILY 09/16/22 12/21/23 azelastine 137 mcg (0.1 %) nasal 2 spray intranasal BID 12/21/23 12/21/23 spray aerosol Allergies Allergy/AdvReac Type Severity Reaction Status Date / Time ciprofloxacin Allergy Rash Verified 01/05/24 20:54 metronidazole [From Flagyl] Allergy Rash Verified 01/05/24 20:54 omeprazole AdvReac Diarrhea Verified 01/05/24 20:54 Review of Systems Review of Systems: All systems are reviewed and are negative unless stated otherwise in the HPI. [facility] Past Medical History Medical History Anxiety Arthritis GERD (gastroesophageal reflux disease) Surgical History Surgical History Hx of removal of ovary Family History Family History Father Diabetes mellitus Mother Asthma Sibling Non Hodgkin's lymphoma Social History Social History Smoking status: Never smoker Alcohol intake: never Substance use: never Substance use type: does not use Living arrangements: with family Gender identity (if verbalized by the patient): Female Spiritual care concerns: No Exam Narrative: General: Alert, awake, afebrile, in no acute distress. HEENT: Dilated left on, mild conjunctival injection, upper eyelid swelling, intact extraocular movements of the left eye with no pain with eye movement, mild clear discharge. Fluorescein staining with tetracaine was used at this time and eye examination using the Wood's lamp revealed no epithelial defect, no evidence of corneal abrasions or ulcerations, no dendritic lesions, no foreign bodies identified with lid eversion, no subtle signs. Slit lamp examination was performed which revealed clear anterior chamber, no flare cells noted. Neck: Trachea midline, no JVD, no lymphadenopathy. Cardiovascular: Regular rate and rhythm, no murmurs, rubs or gallops, no peripheral edema. Respiratory: Clear to auscu
== END 2024-01-05 22:14 | disposition home or self-care (01) ==
PROVIDERS: Emergency Provider Emergency Medicine; PCP Physician Assistant
DX: B02.30 Zoster ocular disease, unspecified (principal); F41.9 Anxiety disorder, unspecified; M19.90 Unspecified osteoarthritis, unspecified site; K21.9 Gastro-esophageal reflux disease without esophagitis
CPT/HCPCS: 99283; A9270

== ENCOUNTER 2024-06-21 16:32 | Outpatient (CLI) | payer BC, SELFPAY ==
--- NOTE | ~2024-06-21 | MM_ITS ---
EXAMINATION: MM screening [facility] BI w charu HISTORY: Screening mammogram TECHNIQUE: Craniocaudal and mediolateral oblique 3-D tomosynthesis images were obtained and synthetic 2-D images were generated. CAD analysis was submitted and interpreted. COMPARISON: 06/11/2023, 05/20/2022, 04/05/2021 BREAST PARENCHYMAL COMPOSITION:Not Dense. There are scattered areas of fibroglandular density. FINDINGS: No suspicious mass, calcification, or architectural distortion are identified in either aminah ast to suggest malignancy. There has been no suspicious interval change. IMPRESSION: No mammographic evidence of malignancy. Recommend routine screening mammography in one year. BI-RADS Category 1: Negative Reviewed, dictated and finalized at location .
== END 2024-06-21 16:33 | disposition home or self-care (01) ==
LOC: MICIMG 16:33
PROVIDERS: PCP Nurse Practitioner; Visit Provider Nurse Practitioner
DX: Z12.31 Encounter for screening mammogram for malignant neoplasm of breast (principal)
CPT/HCPCS: 77063; 77067

== ENCOUNTER 2025-09-19 13:38 | Outpatient (CLI) | payer BC, SELFPAY ==
--- NOTE | ~2025-09-19 | MM_ITS ---
EXAMINATION: MM screening [facility] w charu HISTORY: Screening TECHNIQUE: Craniocaudal and mediolateral oblique 3-D tomosynthesis images were obtained and synthetic 2-D images were generated. CAD analysis was submitted and interpreted. COMPARISON: Comparison to multiple prior studies sequentially, with oldest reviewed study dated , 07/31/2012 BREAST PARENCHYMAL COMPOSITION: Not Dense: There are scattered areas of fibroglandular density. FINDINGS: There is no evidence of suspicious mass, calcification, or architectural distortion to suggest malignancy in either breast. IMPRESSION: 1. No mammographic evidence of malignancy. 2. Recommend routine screening mammography in one year. BI-RADS Category 1: Negative Reviewed, dictated and finalized at location A. [employer]
== END 2025-09-19 13:39 | disposition home or self-care (01) ==
LOC: MICIMG 13:39
PROVIDERS: PCP Nurse Practitioner; Visit Provider Nurse Practitioner
DX: Z12.31 Encounter for screening mammogram for malignant neoplasm of breast (principal)
CPT/HCPCS: 77063; 77067